=== PATIENT | female | born 1955 | race Two or more races ===

== ENCOUNTER → 2019-12-23 | Outpatient (CLI) | payer MEDICARE, BC ==
[~2019-12-23] MED LIST: IOHEXOL 350 MG/ML 100ML IJ ONE
--- NOTE | 2019-12-23 11:55 | NUR ---
PT. TO CLINIC FOR CT OF NECK AND LABS AFTER DR. ELIZABETH EXAM. PT. AOX4, PWD, AND PRESENTS WITH SWELLING TO RT. SIDE OF NECK. NO RESP. DISTRESS NOTED. VSS. ORDERS RECEIVED AND CARRIED OUT.
[2019-12-23 12:00] VITALS: BP 125/68
--- NOTE | 2019-12-23 12:15 | NUR ---
IV insertion IV access obtained, via clean sterile technique by inserting 20 gauge catheter at after attempt(s). IV secured properly. No trauma to site. Patient tolerated procedure well.STAT CREAT.SENT, PLUS ADDITIONAL LABS SENT PER MD ORDER.
[2019-12-23 13:35] LABS: BUN/Creatinine Ratio 25.8; Calcium 9.2 mg/dL (8.5-10.1); Potassium 4.1 mmol/L (3.5-5.1)
--- NOTE | 2019-12-23 13:45 | NUR ---
LABS REVIEWED: WNL CREAT. PT. TO AND FROM CT, AND XRAY. TOLERATED PROCEDURE WELL. NO C/O.
[2019-12-23 14:10] VITALS: BP 150/69
--- NOTE | 2019-12-23 14:10 | NUR ---
Discharge Instructions See e-MAR for any mediations given with this visit. Patient education given on disease process. Patient verbalized understanding. Previous labs reviewed. Patient discharged in stable condition with after care instructions and follow up appointment.PT TO HAVE F/U WITH MD FOR CT RESULTS.
--- NOTE | 2019-12-23 14:10 | NUR ---
IV removal IV DC'd with sterile technique, catheter fully intact. Pressure dressing applied to site. Patient tolerated procedure well. Discharged with aftercare instructions per MD. NOTE: PT. INSTRUCTED TO INCREASE WATER INTAKE FOR NEXT 24 HRS. DC'D STABLE WITH SON.
[2019-12-23 15:53] LABS: Urine Blood Negative /uL (Negative); Urine Specific Gravity 1.011 (1.001-1.035)
[2019-12-23 15:57] LABS: Basophils # (auto) 0 10 ^3/uL (0-0.2); Basophils % (auto) 0.7 % (0.0-2.0); Eosinophils # (auto) 0.1 10 ^3/uL (0-0.8); Eosinophils % (auto) 1.6 % (0.0-7.0); Hematocrit 39.8 % (36.0-46.0); Hemoglobin 13.2 g/dL (12.2-16.2); Lymphocytes # (auto) 1.4 10 ^3/uL (0.4-5.4); Lymphocytes % (auto) 29.8 % (10.0-50.0); Mean Corpuscular Hemoglobin 29.3 pg (28.0-32.0); Mean Corpuscular Hgb Conc. 33.3 g/dL (32.0-36.0); Mean Corpuscular Volume 87.9 fL (80.0-100.0); Monocytes # (auto) 0.3 10 ^3/uL (0-1.3); Monocytes % (auto) 6.3 % (0.0-12.0); Neutrophils % (auto) 61.6 % (37.0-80.0); Platelet Count (auto) 163 10^3/uL (140-450); Red Blood Cells 4.53 10^6/uL (4.0-5.20); Red Cell Distribution Width 13.5 % (11.8-14.3); White Blood Cell 4.9 10^3/uL (4.4-10.8)
[2019-12-23 16:12] LABS: Free T4 (Free Thyroxine) 1.24 ng/dL (0.89-1.76)
[2019-12-23 16:19] LABS: Albumin 4.1 g/dL (3.4-5.0); Bilirubin, Direct 0.1 mg/dL (0-0.2); Magnesium 2.6 mg/dL (1.6-2.6)
[2019-12-23 16:22] LABS: Bilirubin, Total 0.7 mg/dL (0.2-1.0); CRP High Sensitivity 0.4 mg/dL (< 0.3); Total Protein 7.7 g/dL (6.4-8.2)
== END | disposition home or self-care (01) ==
LOC: Rad HDHVI 11:52
PROVIDERS: ATTEND Internal Medicine Cardiovascular Disease
DX: I70.0 Atherosclerosis of aorta (principal); E04.1 Nontoxic single thyroid nodule; I11.9 Hypertensive heart disease without heart failure; B96.81 Helicobacter pylori [H. pylori] as the cause of diseases classified elsewhere; E03.9 Hypothyroidism, unspecified; K90.9 Intestinal malabsorption, unspecified; N39.0 Urinary tract infection, site not specified; D51.9 Vitamin B12 deficiency anemia, unspecified; M32.10 Systemic lupus erythematosus, organ or system involvement unspecified; R70.0 Elevated erythrocyte sedimentation rate; R79.89 Other specified abnormal findings of blood chemistry; I10 Essential (primary) hypertension; Z79.899 Other long term (current) drug therapy; Z00.00 Encounter for general adult medical examination without abnormal findings
CPT/HCPCS: 36415; 70491; 71046; 80048; 80061; 80076; 81003; 82306; 82607; 83036; 83735; 84439; 84443; 85025; 85652; 86141; 86225; 86235; 86677; Q9967